=== PATIENT | male | born 1965 | race Caucasian/White ===

== ENCOUNTER 2018-07-24 22:41 | Emergency (ER) | payer MEDICAID ==
[~2018-07-24] VITALS: Ht 172.7 cm; Wt 97.5 kg
[~2018-07-24 22:41] MED LIST: GLYB2.5 PO; GLYB5 PO; HYDACE5 PO; METF500 PO; NAPR550 PO; OXYACE5T PO; PANT40 PO; RXNAPNA550 PO; SUCR1 PO
== END 2018-07-25 00:30 | disposition home or self-care (01) ==
LOC: ER 22:41
DX: S61.011A Laceration without foreign body of right thumb without damage to nail, initial encounter (principal); W26.8XXA Contact with other sharp object(s), not elsewhere classified, initial encounter; E11.9 Type 2 diabetes mellitus without complications; F17.200 Nicotine dependence, unspecified, uncomplicated
CPT/HCPCS: 12002; 90471; 90714; 99282-25

== ENCOUNTER 2023-02-16 12:11 | Emergency (ER) | payer SELFPAY ==
[~2023-02-16] VITALS: Ht 175.3 cm; Wt 86.2 kg
[2023-02-16] MEDS ORDERED: METF500 PO (12:36)
[2023-02-16] MEDS ORDERED: IBUP800 PO (12:45)
[2023-02-16] MEDS ORDERED: Acetaminophen325 M1 PO (12:46)
[2023-02-16] MEDS ORDERED: HYDROCODONE-AC1 EA19 PO (14:15)
[2023-02-16 14:32] VITALS: BP 137/81
== END 2023-02-16 14:35 | disposition home or self-care (01) ==
LOC: ER 12:11
DX: M25.551 Pain in right hip (principal); G89.29 Other chronic pain; F17.200 Nicotine dependence, unspecified, uncomplicated; Z79.84 Long term (current) use of oral hypoglycemic drugs
CPT/HCPCS: 99283